=== PATIENT | female | born 1990 | race Caucasian/White ===

== ENCOUNTER 2025-07-09 07:58 | Outpatient (CLI) | payer OTHER, SELFPAY ==
--- NOTE | 2025-07-09 08:15 | CRLHL7_ITS ---
For Patients: As a result of the Century Cures Act, medical imaging exams and procedure reports are released immediately into your electronic medical record. You may view this report before your referring provider. If you have questions, please contact your health care provider. OB ULTRASOUND INDICATION: Dating and viability. TECHNIQUE: Real time grayscale imaging of the fetus was performed. Transvaginal. Transvaginal imaging performed to better demonstrate the endometrium and ovaries. LMP: 05/13/2025. LUCILA by LMP: 02/17/2026. GA: 8 w, 1 d. Previous US: No. CRL: 1.3 cm. 7 w 4 d. LUCILA: 02/21/2026. FHR: 159 BPM. Gestational sac: 2.5 cm. Appears within normal limits. Yolk sac: 3.0 mm. Appears within normal limits. Right ovary: Within normal limits. 2.4 x 1.7 x 1.9 cm. Left ovary: Within normal limits. 3.6 x 2.2 x 3.1 cm. CL. IMPRESSION: 1. Single living intrauterine measures 7 weeks 4 days with sonographic due date 02/21/2026. 2. Subchorionic hemorrhage measures 12 x 6 x 5 mm. 3. Corpus luteal cyst left ovary. Reji Machuca M.D. Diagnostic Radiologist [email or web address] YUNIEL/neil trejo/Dictated by: Reji Machuca MD @ 07/09/2025 9:34:00 AM (Electronically Signed)
== END 2025-07-09 07:59 | disposition home or self-care (01) ==
LOC: US 07:59
PROVIDERS: PCP Nurse Practitioner Family; Visit Provider Physician Assistant
DX: O20.0 Threatened abortion (principal); N83.201 Unspecified ovarian cyst, right side; Z3A.08 8 weeks gestation of pregnancy
CPT/HCPCS: 76817

== ENCOUNTER 2025-07-09 09:02 | Outpatient (CLI) | payer OTHER, SELFPAY ==
[2025-07-09 20:38] LABS: Chlamydia DNA Amplified* NOT DETECTED (No Detected); GC DNA Amplified* NOT DETECTED (No Detected)
== END 2025-07-09 09:03 | disposition home or self-care (01) ==
PROVIDERS: PCP Nurse Practitioner Family; Visit Provider Physician Assistant
DX: Z34.91 Encounter for supervision of normal pregnancy, unspecified, first trimester (principal)
CPT/HCPCS: 82565; 82570; 83020; 83021; 84156; 84450; 84460; 84520; 85660; 86703; 86704; 86706; 86762; 86780; 86787; 86803; 86850; 86900; 86901; 87086; 87340; 87491; 87591

== ENCOUNTER 2025-07-16 06:00 | Outpatient (CLI) | payer OTHER, SELFPAY | END 2025-07-16 06:01 | disposition home or self-care (01) | LOC: NFLDREF 07-22 04:25 | PROVIDERS: PCP Nurse Practitioner Family; Referring Provider Nurse Practitioner Family; Visit Provider Physician Assistant | DX: Z34.91 Encounter for supervision of normal pregnancy, unspecified, first trimester (principal) | CPT/HCPCS: 82570; 84156 ==